=== PATIENT | female | born 1990 | race Caucasian/White ===

== ENCOUNTER 2025-03-23 06:37 | Outpatient (RCR) | payer OTHER, SELFPAY | END 2025-03-23 23:59 | disposition home or self-care (01) | LOC: RPT 06:37 | PROVIDERS: ATTENDING PHYSICIAN Physician Assistant Medical | DX: M62.81 Muscle weakness (generalized) (principal); M54.2 Cervicalgia; Z73.6 Limitation of activities due to disability | CPT/HCPCS: 97110; 97161 ==

== ENCOUNTER 2025-04-17 09:25 | Outpatient (RCR) | payer OTHER, SELFPAY | END 2025-04-17 23:59 | disposition home or self-care (01) | LOC: RPT 09:25 | PROVIDERS: ATTENDING PHYSICIAN Physician Assistant Medical | DX: M54.2 Cervicalgia (principal); Z73.6 Limitation of activities due to disability; M62.81 Muscle weakness (generalized); R29.3 Abnormal posture | CPT/HCPCS: 97110; 97112; 97140 ==

== ENCOUNTER 2025-05-24 12:43 | Outpatient (RCR) | payer OTHER, SELFPAY | END 2025-05-24 23:59 | disposition home or self-care (01) | LOC: RPT 12:43 | PROVIDERS: ATTENDING PHYSICIAN Physician Assistant Medical | DX: M54.2 Cervicalgia (principal); Z73.6 Limitation of activities due to disability; M62.81 Muscle weakness (generalized); R29.3 Abnormal posture | CPT/HCPCS: 97110; 97112; 97140 ==